=== PATIENT | female | born 1955 | race Caucasian/White ===

== ENCOUNTER 2018-12-13 19:42 | Inpatient (IN) | payer BC ==
[~2018-12-13] VITALS: Ht 175.3 cm; Wt 52.3 kg
[2018-12-13] MEDS ORDERED: PRIL40 PO (20:26)
--- NOTE | 2018-12-13 23:00 | NUR ---
Patient arrives on unit from ED accompanied by two of her daughters. Right arm is in a sling. Left wrist is braced. IV in right wrist. Patient arm band applied to right ankle. Blood pressure taken on the leg. Patient complains of nausea and pain.
[2018-12-13 23:03] VITALS: BP 166/90; PULSE 70; TEMP 97.6
--- NOTE | 2018-12-13 23:10 | NUR ---
Patient states she is feeling nauseous dispite a recent dose of Zofran. Requested Phenergan from Dr. Li received order for phenergan 12.5 mg IV every 6 hours for nausea.
[2018-12-14] VITALS (12 sets, daily range): BP systolic 111–164; BP diastolic 47–98; PULSE 58–72; TEMP 97.7–98.9
--- NOTE | 2018-12-14 11:11 | NUR ---
Patient lives at home with her daughter in [place], [place] and plans to retun home upon recovery. Patient was playing with her grandchildren and fell off of a slide resulting in a bilateral broken arm/wrist. Patient's family members (daughter Brody Alejandra [phone] and daughter Aniya Rodriguez [phone]) are supportive of patient's needs. Patient is a retired [employer] teacher and is independent with daily living activities. Patient has no durable medical equipment usage at this time, has no primary care physician at this time, her pharmacy is [facility] ([place]), and she does not have advance directives of healthcare completed at this time. No further needs and social service assistant will follow as needed.
--- NOTE | 2018-12-14 15:07 | NUR ---
Patient arrived back from surgery around 1400. Had a block to the left arm. Unable to move fingers on left hand at this time. Color in within normal limits.
--- NOTE | 2018-12-14 19:00 | NUR ---
REPORT RECIEVED FROM DEBI BARTLETT; CARE OF PT ASSUMED AT THIS TIME. BEDSIDE ROUNDS COMPLETED AND PT DENIES NEEDS AT THIS TIME.
--- NOTE | 2018-12-14 19:20 | NUR ---
Patient laying in bed this room during shift assessment. Throughout shift patient complained primarily of pain to right shoulder, which increases significantly with movement. [place] has provided adequate pain relief. Patient had surgery to repair broken left wrist. Patient has not yet regained feeling to her left forearm and is unable to move her fingers. Fingers are warm and capillary refill is within normal limits. Left arm to be in sling whenever patient is out of bed. Right arm is in sling as well. Patient has very good bed mobility and daughters have been at bedside throughout shift to help patient with eating and toileting. Patient went for a walk this afternoon after surgery and pain has been well controlled this evening.
--- NOTE | 2018-12-14 21:00 | NUR ---
PT IS TOLERATING PO INTAKE WELL AND IS AMBULATING WITHIN HER ROOM AND OCC IN HALLS WITHOUT ISSUES. IVF DC'D AT THIS TIME.
--- NOTE | 2018-12-14 21:39 | NUR ---
PT AWAKE, ALERT, OX4. PT REPORTS PAIN TO R SHOULDER WORSE WITH ACTIIVTY, HYDROCODONE GIVEN AT THIS TIME. RATES PAIN AT 4/10 CURRENTLY. PT DENIES NAUSEA. IV SITE TO R FA IS SLIGHTLY EDEMATOUS AT SITE WITH NO ERYTHEMA AND PT DENIES PAIN TO THIS AREA. IVAB STARTED AT THIS TIME AND SITE MONITORED FOR S/S OF INFILTRATION. PT REPORTS PASSING FLATUS THIS EVENING. HR REG, LS CTA, NO EDEMA. IMMOBILIZING SLING TO RUE IN PLACE AT ALL TIMES. L WRIST WITH DRESSING AND TYRONE WRAP IN PLACE FOLLOWING SURGICAL REPAIR TODAY, SLING ALSO IN PLACE TO LUE. PT DENIES HAVING DIFFICULTIES AMBULATING. DAUGHTER IS AT PT BEDSIDE. CALL LIGHT WITHIN REACH.
--- NOTE | 2018-12-14 22:30 | NUR ---
IV SITE WITHOUT REDNESS, NO INCREASED EDEMA AND PT DENIES PAIN WITH ANTIBIOTIC INFUSION. FLUSHED WITH NS.
[2018-12-15] VITALS (7 sets, daily range): BP systolic 89–138; BP diastolic 42–60; PULSE 52–67; TEMP 97.7–98.3
--- NOTE | 2018-12-15 06:02 | NUR ---
PT RESTED WELL FOR A PERIOD THROUGH THE NIGHT THEN AWAKENED IN PAIN AT APPROX 0500, NORCO GIVEN AT THAT TIME. PT REPORTS THAT HER L WRIST IS NOW HAVING MORE PAIN AND IS ABLE TO MOVE IT MORE WITH THE BLOCK WEARING OFF. IVAB X3 DOSES COMPLETED. SLINGS REMAIN IN PLACE. PT GIVEN A SECOND NORCO AT 0600 PER REQUEST, RATES PAIN AT 4-5/10 MOSTLY TO THE L WRIST BUT ALSO REPORTS PAIN TO R SHOULDER. DAUGHTER REMAINS AT PT BEDSIDE. PT PROVIDED WITH COFFEE THIS MORNING. REFUSES HER PROTONIX AT THIS TIME, STATES SHE DOES NOT FEEL THAT SHE NEEDS IT CURRENTLY. CALL LIGHT WITHIN REACH.
--- NOTE | 2018-12-15 07:02 | NUR ---
REPORT GIVEN TO DEBI LOPEZ. BEDSIDE ROUNDS COMPLETED, PT DENIES NEEDS.
--- NOTE | 2018-12-15 08:15 | NUR ---
Patient in bed resting. Alert and oriented x 3. Shift assessment complete. Right upper extremity and left upper extremity in slings. Splint to left wrist. Patient states she is now able to feel her fingers on her left hand. Denies pain at this time. Daughter at bedside. Denies further needs at this time
--- NOTE | 2018-12-15 11:14 | NUR ---
Initial visit; Patient thanked Ambulance Driver for looking in on her and offering God's blessings.
--- NOTE | 2018-12-15 18:58 | NUR ---
Patient has done well throughout the day. Has been up ambulating in halls throughout the day. Denies further needs at this time. Reported off to night warehouse selector.
--- NOTE | 2018-12-16 04:12 | NUR ---
Patient has rested well throughout the night. Pain meication given x2 this shift. Pain well controlled with current regimen. Denies any further needs. Will continue to monitor.
[2018-12-16 05:59] VITALS: BP 114/50; PULSE 66; TEMP 98.2
[2018-12-16 07:20] VITALS: BP 133/60; PULSE 66
--- NOTE | 2018-12-16 07:40 | NUR ---
Reported onto Ena CARRERA
--- NOTE | 2018-12-16 08:10 | NUR ---
Patient in bed resting. Daughter at bedside. Alert and oriented x 3. Assessment complete. RUE in sling. Splint to left wrist. States pain is tolerable at this time. Will call when she needs something. Patient independent in room. Educated patient on lovenox injection, refused at this time. Denies further needs at this time.
--- NOTE | 2018-12-16 08:45 | NUR ---
Focused Assessment completed. RUE with sling & LUE with splint. Able to move fingers, cap refill less than 3 sec. No edema of fingers [place]. noted States pain controlled wiht meds-describes pain @ 1-2. Will request meds as needed. Pt. wanting to get dressed with daughter's assist. INT to RFA intact
[2018-12-16 11:12] VITALS: BP 145/58; PULSE 60; TEMP 87
--- NOTE | 2018-12-16 11:19 | NUR ---
Report off to Ena CARRERA
[2018-12-16] MEDS ORDERED: NORCO 325 MG-7.1 TAB PO (12:03)
[2018-12-16] MEDS ORDERED: SENNA-S 50 MG-81 TAB PO (12:04)
--- NOTE | 2018-12-16 12:49 | NUR ---
Discharge education provided to patient. Educated on medications and activity restrictions. All questions answered. INT to right forarm, catheter tip intact. Denies pain or further needs at this time. Patient ambulated out with surgical staff and daughter.
== END 2018-12-16 12:50 | disposition home or self-care (01) | DRG 511 ==
LOC: COL.ER 19:42 → SURG 21:52
PROVIDERS: Orthopaedic Surgery; ADMIT Surgery
PROC: 0PSJ04Z Reposition Left Radius with Internal Fixation Device, Open Approach (ICD-10-PCS; principal; 2018-12-14 15:00)
DX: S52.532A Colles' fracture of left radius, initial encounter for closed fracture (principal); S42.201A Unspecified fracture of upper end of right humerus, initial encounter for closed fracture; K21.9 Gastro-esophageal reflux disease without esophagitis; S52.612A Displaced fracture of left ulna styloid process, initial encounter for closed fracture; W17.89XA Other fall from one level to another, initial encounter; Y93.89 Activity, other specified; Y92.830 Public park as the place of occurrence of the external cause; Y99.8 Other external cause status
CPT/HCPCS: C1713; C1769; J0690; J1100; J1170; J1650; J1885; J2250; J2405; J2550; J2704; J3010; Q4021